=== PATIENT | female | born 1980 | race Caucasian/White ===

== ENCOUNTER 2021-05-17 09:23 | Inpatient (IN) ==
--- NOTE | 2021-04-29 11:47 | PAT Medication Instructions ---
Medication Instructions Date of Service April 29, 2021 Home Medications cholecalciferol (vitamin D3) 50 mcg (2,000 unit) capsule (Vitamin D3) 50 mcg PO BID duloxetine 60 mg capsule,delayed release 60 mg PO HS gabapentin 100 mg capsule 200 mg PO TID DO NOT take the morning of surgery cholecalciferol (vitamin D3) 50 mcg (2,000 unit) capsule (Vitamin D3) 50 mcg PO BID Take morning of surgery With a small sip of water, OTHERWISE NOTHING TO EAT OR DRINK AFTER MIDNIGHT: gabapentin 100 mg capsule 200 mg PO TID Take evening before surgery cholecalciferol (vitamin D3) 50 mcg (2,000 unit) capsule (Vitamin D3) 50 mcg PO BID duloxetine 60 mg capsule,delayed release 60 mg PO HS gabapentin 100 mg capsule 200 mg PO TID Other Notes If you have any questions please call us at [phone] or [phone] or [phone] or [phone]
--- NOTE | 2021-05-03 12:18 | Anesthesiology Consultation ---
Date of Service May 03, 2021 Assessment & Plan (1) Encounter for pre-operative examination: - check urine test am DOS. - surgeon ordered medical clearance. - COVID screening: Per assessment on 05/03/2021: Travel screen negative, no known COVID-19 positive contacts or current COVID-19 related symptoms in past 2 weeks. Patient vaccinated. Surgeon arranging preop COVID testing, scheduled 05/13/2021. Awaiting results. Pt aware that if pre-op COVID test were to return positive, per hospital policy home COVID tests are not accepted and surgery would therefore be re-scheduled. She plans to discuss a PCR test with her PCP. Chart Review Chart Review: Pending: Refer to Additional Notes / Consult section and Patient seen in Pre Admission Testing Teaching & Discussion Pre-Anesthesia Teaching/Discussion Notes: Instructed NPO after midnight before surgery, except medications with 15 cc of water. Medication instructions provided according to the PAT guidelines. History Surgery Operation Date: 05/17/21 10:20 Proposed Procedures p L5-S1 Decompression Fusion Spinal Cord Monitoring - Shailesh Baldwin DO Height/Weight Height: 5 ft 5 in Weight: 74.6 kg Allergies Allergy/AdvReac Type Severity Reaction Status Date / Time No Known Allergies Allergy Verified 04/28/21 08:18 Medications Home Medications Medication Instructions Recorded Confirmed Last Taken cholecalciferol (vitamin D3) 50 50 mcg PO BID 04/28/21 04/28/21 Unknown mcg (2,000 unit) capsule (Vitamin D3) duloxetine 60 mg capsule,delayed 60 mg PO HS 04/28/21 04/28/21 Unknown release gabapentin 100 mg capsule 200 mg PO TID 04/28/21 04/28/21 Unknown Past Medical History Medical History (Updated 05/03/21 @ 12:37 by Alma Rosa Crocker PA-C) Anxiety and depression "RELATED TO MY BACK PAIN" Cardiac murmur present in childhood with persistence into adulthood, per pt PCP follows and does not require cardio Degenerative disc disease History of COVID-19 HOME TEST DONE 03/09/21>SYMPTOMS FATIGUE/BODY ACHES *FEELING BETTER History of IBS Migraine Spinal stenosis Patient denies h/o stroke, seizures, heart attack, heart failure, DM, HTN, blood clots or blood transfusions. Exercise / Class Metabolic Activity II 4-5 Yardwork/Stairs/Walk up hill (denies CP or SOB with 1 FOS) Past Family History Family History Mother Family history of diabetes mellitus Other No family history of adverse response to anesthesia Past Surgical History Surgical History H/O breast augmentation History of bladder surgery BLADDER SLING History of colonoscopy History of cystoscopy History of endometrial ablation History of tooth extraction [place] teeth removed Past Anesthesia History No Hx of Anesthesia Complications and No Family Hx of Anesthesia Complications History of PONV No Hx of PONV and No Hx of Motion Sickness Social History Smoking Status: Former smoker tobacco type: cigarettes Do You Dip or Chew Tobacco: No Smoking End Date: 4 YEARS AGO Hx Alcohol Use: Yes Alcohol type: hard liquor alcohol intake frequency: a few times a week substance use type: does not use Review of Systems Snoring, denies witnessed apneas or sleep studies. Patient denies chest pain, shortness of breath, dyspnea on exertion, reflux, fever, chills, cough, wheezing, or palpitations. Physical Exam Vital Signs Vitals BP 112/74 P 70 TEMP 98.7 SP02 98% on RA RESP 17 Physical Full cervical extension range of motion without pain Full TMJ range of motion TMD 3.5 finger breaths Mallampati Score 2 Dentition: intact, #19 permanent bridge-cracked; denies loose teeth or implants Lungs: normal respiratory effort. Clear throughout to auscultation, no adventitious breath sounds Cardiac: regular rate and rhythm, no murmurs noted Carotid arteries: negative bruit bilat Extremities: no distal extremity edema Lab Results Anesthesia Preop Results Results Anesthesia Widget: WBC 6.23 K/uL (4.8-10.8) 05/03/21 Hgb 13.6 g/dL (12.0-16.0) 05/03/21 Hct 38.1 % (37-47) 05/03/21 Plt 331 K/uL (130-400) 05/03/21 Na 136 mmol/L (136-145) 05/03/21 K 3.7 mmol/L (3.5-5.1) 05/03/21 Cl 103 mmol/L (98-107) 05/03/21 CO2 27 mmol/L (21-32) 05/03/21 BUN 9 mg/dl (6-23) 05/03/21 Creat 0.58 mg/dl (0.6-1.2) L 05/03/21 Glucose Level 84 mg/dl (70-99(Fasting)) 05/03/21 PT 9.8 Seconds (9.0-12.0) 05/03/21 PTT 27.5 Seconds (21.0-31.0) 05/03/21 INR 1.0 (0.9-1.1) 05/03/21 Urine Color Yellow 05/03/21 Urine Appearance Clear (Clear) 05/03/21 Urine pH 5.5 (4.5-7.5) 05/03/21 Urine Specific [place] 1.015 (1.000-1.030) 05/03/21 Urine Protein Negative (Negative) 05/03/21 Urine Glucose (UA) Negative (Negative) 05/03/21 Urine Ketones Negative (Negative) 05/03/21 Urine Blood Negative (Negative) 05/03/21 Urine Nitrite Negative (Negative) 05/03/21 Urine Bilirubin Negative (Negative) 05/03/21 Urine Urobilinogen Negative (Negative) 05/03/21 Urine Leukocyte Esterase Negative (Negative) 05/03/21 Blood Type A Negative 05/03/21 Antibody Screen NEGATIVE 05/03/21 Testing Electrocardiogram Date: 05/03/21 NSR, rate [address] abnormality Chest X-Ray Date: 05/03/21 FINDINGS: The cardiac mediastinal and hilar silhouettes are within normal limits. No pneumothorax, pleural effusion, airspace consolidation or overt pulmonary edema. Bilateral breast implants. The bones of the chest appear grossly intact. IMPRESSION: No acute process.
[~2021-05-17 09:23] MED LIST: ACETAMINOPHEN 500 MG TAB PO SCH; CeleBREX 200 MG CAP PO SCH; GABAPENTIN 900 MG DOSE PO SCH; LR 15ML/HR IV SCH; ceFAZolin 1000MG 1,000 MG/7.5 ML SYR IV SCH
[2021-05-17] MEDS ORDERED: MIDAZOLAM HCL 1 MG/ML 2ML VIAL ONE (10:00)
[2021-05-17] MEDS ORDERED: fentaNYL citrate 100 MCG/2 ML VIAL ONE (10:00)
[2021-05-17] MEDS ORDERED: ONDANSETRON INJ 2 MG/ML 2 ML VIAL ONE (10:03)
[2021-05-17] MEDS ORDERED: ROCURONIUM BROMIDE 10 MG/ML 5 ML VIAL IV ONE (10:03)
[2021-05-17] MEDS ORDERED: DEXAMETHASONE SOD INJ 4 MG/ML VIAL ONE (10:03)
[2021-05-17] MEDS ORDERED: LIDOCAINE 2% 2 ML VIAL/AMP(20MG/ML) INFIL ONE (10:03)
[2021-05-17] MEDS ORDERED: PROPOFOL IV EMULSION 10 MG/ML 20 ML VIAL IV ONE (10:03)
[2021-05-17] MEDS ORDERED: ATROPINE SULFATE 0.1 MG/ML 10ML SYR IV PRN (10:20)
[2021-05-17] MEDS ORDERED: ONDANSETRON INJ 2 MG/ML 2 ML VIAL IV PRN ×2 (10:20→13:35)
[2021-05-17] MEDS ORDERED: ePHEDrine sulfate 50 MG/ML AMP IV PRN (10:20)
[2021-05-17] MEDS ORDERED: HYDROmorphone INJ 1 MG/ML SYRINGE IV PRN (10:20)
[2021-05-17] MEDS ORDERED: fentaNYL citrate 100 MCG/2 ML VIAL IV PRN (10:20)
--- NOTE | 2021-05-17 10:26 | History & Physical Bridge Note ---
Date of Service May 17, 2021 History & Physical Bridge Note I have examined the patient, reviewed the History & Physical and in the interval since the performance of the History & Physical I have noted the following changes of clinical significance: no changes noted
--- NOTE | 2021-05-17 10:27 | History & Physical Report ---
Date of Service May 17, 2021 Assessment & Plan (1) Lumbar disc herniation with radiculopathy: Plan: Lumbar decompression fusion L5-S1 History of Present Illness Chief Complaint: Back and leg pain Primary Care Provider: [place] Faustin This is a 40-year-old female presents with chronic persistent back and leg pain. Failing course of nonoperative care she is here for surgical invention. Allergies Allergy/AdvReac Type Severity Reaction Status Date / Time No Known Allergies Allergy Verified 05/17/21 09:48 Home Medications Medication Instructions Recorded Confirmed Type cholecalciferol (vitamin D3) 50 50 mcg PO BID 04/28/21 05/17/21 History mcg (2,000 unit) capsule (Vitamin D3) duloxetine 60 mg capsule,delayed 60 mg PO HS 04/28/21 05/17/21 History release gabapentin 100 mg capsule 200 mg PO TID 04/28/21 05/17/21 History Past Med/Surg History Medical History (Updated 05/17/21 @ 10:26 by Shailesh Baldwin, ) Anxiety and depression "RELATED TO MY BACK PAIN" Cardiac murmur present in childhood with persistence into adulthood, per pt PCP follows and does not require cardio Degenerative disc disease History of COVID-19 HOME TEST DONE 03/09/21>SYMPTOMS FATIGUE/BODY ACHES *FEELING BETTER History of IBS Migraine Spinal stenosis Surgical History H/O breast augmentation History of bladder surgery BLADDER SLING History of colonoscopy History of cystoscopy History of endometrial ablation History of tooth extraction [place] teeth removed Family History Mother Family history of diabetes mellitus Other No family history of adverse response to anesthesia Social History Smoking Status: Former smoker Smoking End Date: 4 YEARS AGO; Do You Dip or Chew Tobacco: No; Hx Alcohol Use: Yes Alcohol type: hard liquor Preferred Language: Albanian Leadership Development Consultant Required: No Beliefs That Will Affect Care: None Current Living Situation: Spouse Feels Safe at Home: Yes Safety Concerns: Feels Safe At This Time Assistive Devices: None Physical Exam Physical Exam: Patient is alert and oriented Heart regular rhythm Lungs clear Results & Data ([place]) Vital Signs (Past 12 Hours) Vital Signs Temp Pulse Resp BP Pulse Ox 05/17/21 09:51 37.0 C 67 16 122/78 98
[2021-05-17] MEDS ORDERED: BUPIVACAINE/EPINEPHRINE 0.25% 1:200,000 30 ML VIAL ONE (10:43)
[2021-05-17] MEDS ORDERED: ceFAZolin 330 MG/ML 1 GM VIAL ONE (10:43)
[2021-05-17] MEDS ORDERED: HYDROmorphone INJ 2 MG/ML SYR/VIAL ONE (11:04)
[2021-05-17] MEDS ORDERED: FLOSEAL HEMOSTATIC MATRIX 10ML TOP ONE (11:30)
[2021-05-17] MEDS ORDERED: NEOSTIGMINE METHYLSULFATE 1 MG/ML 10ML VIAL ONE (11:55)
[2021-05-17] MEDS ORDERED: GLYCOPYRROLATE 0.2 MG/ML VIAL ONE (11:55)
--- NOTE | 2021-05-17 12:23 | Operative Report ---
Post Operative Report Pre & Post Diagnosis Operation Date: 05/17/21 11:05 Pre-Op Diagnosis: Lumbar disc herniation with radiculopathy Post-Op Diagnosis: Lumbar disc herniation with radiculopathy I identified the patient and participated in the time-out.: Yes Procedure Operation Date: 05/17/21 11:05 Actual Procedures #1 lumbar decompression with bilateral medial facetectomies and foraminotomies L4-5 L5-S1. #2 posterior spinal fusion L5-S1. #3 placement posterior instrumentation L5-S1. #4 interbody fusion L5-S1. #5 placement of titanium cage 12 x 26 mm at L5-S1. #6 placement locally harvested morselized autograft in the posterior gutters. #7 placement of I factor combined with V toss in the interbody space and posterior lateral gutters. Surgeon Shailesh Baldwin, Nurse Ldr None Estimated Blood Loss 100 Findings Consistent with Post-Op Diagnosis Specimens None Indications This is a 40-year-old female who presents with marked decline in status with significant leg pain is here for the above-mentioned procedure. Description of Procedure Patient met with identified informed consent obtained. Patient was then taken to the operative suite underwent ablation placed in a prone position on the [place] table top [place] frame. All bony prominences well-padded eyes inspected to ensure no external pressure placed upon the. This point the lumbar spine was prepped and draped in a sterile fashion. Sharp dissection with the assistance of Bovie cautery was performed down to and exposing the lamina and transverse processes of L5 and the sacral ala bilaterally. From caudal to cephalad fashion complete laminectomy L5 partial laminectomy of L4 was performed occluding bilateral medial facetectomies and foraminotomies addressing all neural compression. Pedicle screws were then placed in L5 and S1 bilaterally with assistance of fluoroscopy and appropriate sized rosemary placed. By way of a transforaminal approach on the left complete discectomy L5-S1 was performed endplates curetted to subcortical being bone and a 12 x 26 mm titanium cage filled with I factor tapped in position. The rods then compressed locked in final position bilaterally. The transverse processes of L5 and sacral ala burred to subcortical bleeding bone. I factor combined with V toss and locally harvested morselized autograft was placed in the posterior gutters. 15 round PAIGE drain inserted. Incision was then closed with 1 Vicryl to fascia 2-0 Vicryl subcutaneously and 4 Monocryl for final skin closure. Steri-Strip sterile dressings placed. Patient waken taken to PACU stable condition. Please note spinal cord monitoring visualized at the procedure no changes noted. I attest to the content of the Intraoperative Record and any orders documented therein. Any exceptions are noted below.
--- NOTE | 2021-05-17 12:55 | Fluoroscopy Report ---
FL lumbar spine 2-3V CLINICAL HISTORY: L5-S1 DFI. Status post internal fixation COMPARISON STUDY: None FLUOROSCOPY TIME: 31 seconds. FLUOROSCOPIC IMAGES: 2 FINDINGS: AP and lateral fluoroscopic spot films demonstrate interpedicular screw and rosemary fixation at L5-S1. A disc spacer is also in place. IMPRESSION: Status post internal fixation. ACT 112: Negative or not required by law. Electronically signed by: Boone Bernstein M.D. 05/17/2021 12:54 PM
--- NOTE | 2021-05-17 13:05 | Anesthesiology Progress Note ---
Date of Service May 17, 2021 Anesthesia Post Procedure Vital Signs Vital Signs: Temp Pulse Pulse Resp BP BP Pulse Ox 05/17/21 13:00 77 18 114/68 97 05/17/21 12:50 80 18 118/73 99 05/17/21 12:40 86 18 114/73 100 05/17/21 12:31 36.1 C L 78 12 108/64 100 05/17/21 09:51 37.0 C 67 16 122/78 98 Pain Intensity Left Lower Back: Pain Intensity: 4 Transfer of Care Handoff Completed per policy Notes Mental Status: alert / awake / arousable and participated in evaluation Patient Amnestic to Procedure: Yes Nausea / Vomiting: adequately controlled Pain: adequately controlled Airway Patency, RR, SpO2: stable & adequate BP & HR: stable & adequate Hydration State: stable & adequate Anesthetic Complications: no major complications apparent and Pt Satisfied with anesthetic care
[2021-05-17] MEDS ORDERED: ALUMINUM/MAGNESIUM SUSP 30 ML UDC PO PRN (13:35)
[2021-05-17] MEDS ORDERED: SOD PHOSPHATE/SOD BIPHOSPHATE ENEMA 132 ML BTL PR PRN (13:35)
[2021-05-17] MEDS ORDERED: LORazepam 2 MG/1 ML VIAL IV PRN (13:35)
[2021-05-17] MEDS ORDERED: DO NOT ADMINISTER PNEUMOCOCCAL VACCINE PRN (13:35)
[2021-05-17] MEDS ORDERED: ONDANSETRON 4 MG OD TAB PO PRN (13:35)
[2021-05-17] MEDS ORDERED: METOCLOPRAMIDE HCL INJ 5 MG/ML 2 ML VIAL IV PRN (13:35)
[2021-05-17] MEDS ORDERED: diphenhydrAMINE Capsule 25 MG CAP PO PRN (13:35)
[2021-05-17] MEDS ORDERED: DO NOT ADMINISTER FLU VACCINE PRN (13:35)
[2021-05-17] MEDS ORDERED: NALOXONE HCL 0.4 MG/1 ML VIAL/CARP IV PRN (13:35)
[2021-05-17] MEDS ORDERED: LORazepam 0.5 MG TAB PO PRN (13:35)
[2021-05-17] MEDS ORDERED: FAMOTIDINE 20 MG TAB PO PRN (13:35)
[2021-05-17] MEDS ORDERED: ACETAMINOPHEN 1,000 MG/100 ML VIAL IV PRN (13:35)
[2021-05-17] MEDS ORDERED: bisacodyL 10 MG SUPP PR PRN (13:35)
[2021-05-17] MEDS ORDERED: hydrOXYzine HCl 25 MG TAB PO PRN (13:35)
[2021-05-17] MEDS ORDERED: PROMETHAZINE HCL 12.5 MG in SODIUM CHLORIDE 0.9% 50 ML IV PRN (13:35)
[2021-05-17] MEDS ORDERED: MAGNESIUM HYDROXIDE SUSP 30 ML UDC PO PRN (13:35)
[2021-05-17] MEDS ORDERED: traMADol HCL 50 MG TABLET PO PRN (13:35)
[2021-05-17] MEDS: HYDROmorphone INJ 0.5 MG/0.5 ML SYR IV PRN (13:59)
[2021-05-17] MEDS: LACTATED RINGER'S 1,000 ML IV SCH (13:59)
[2021-05-17] MEDS: GABAPENTIN 100 MG CAP PO SCH ×2 (15:23→21:05)
[2021-05-17] MEDS ORDERED: COUGH DROP (SUGAR FREE) LOZ 24 LOZ/1 BOX BUCCAL PRN (15:34)
[2021-05-17] MEDS: oxyCODONE HCL IR 5 MG TAB (IMMEDIATE RELEASE) PO PRN ×2 (16:36→23:24)
[2021-05-17] MEDS: KETOROLAC TROMETHAMINE 15 MG/ML VIAL IV SCH (17:38)
[2021-05-17] MEDS: ceFAZolin 2000MG 2,000 MG/15 ML SYR IV SCH (17:38)
[2021-05-17] MEDS: CHOLECALCIFEROL 1,000 UNITS 25 MCG TAB PO SCH (21:00)
[2021-05-17] MEDS: DULoxetine HCL 60 MG CAP PO SCH (21:03)
[2021-05-17] MEDS: HYDROmorphone INJ 1 MG/ML SYRINGE IV PRN (21:06)
[2021-05-17] MEDS: DOCUSATE SODIUM/SENNA 50/8.6MG TAB PO SCH (21:06)
[2021-05-18] MEDS: LACTATED RINGER'S 1,000 ML IV SCH (00:46)
[2021-05-18] MEDS: KETOROLAC TROMETHAMINE 15 MG/ML VIAL IV SCH ×3 (00:46→12:18)
[2021-05-18] MEDS: ceFAZolin 2000MG 2,000 MG/15 ML SYR IV SCH (02:12)
[2021-05-18] MEDS: HYDROmorphone INJ 1 MG/ML SYRINGE IV PRN ×3 (04:06→22:00)
[2021-05-18] MEDS: POLYETHYLENE (MIRALAX) 17 GM PACK PO SCH ×4 (05:51→22:01)
[2021-05-18] MEDS: oxyCODONE HCL IR 5 MG TAB (IMMEDIATE RELEASE) PO PRN ×2 (07:37→15:07)
[2021-05-18 08:33] LABS: Basophils # (auto) 0.02 K/uL (0-0.2); Basophils % (auto) 0.2 %; Eosinophils # (auto) 0.01 K/uL (0-0.5); Eosinophils % (auto) 0.1 %; Hematocrit (blood only) 30.6 % (37-47); Hemoglobin 10.5 g/dL (12.0-16.0); Immature Granulocytes # (auto) 0.02 K/uL (0.00-0.02); Immature Granulocytes % (auto) 0.2 %; Lymphocytes # (auto) 2.25 K/uL (1.2-3.4); Lymphocytes % (auto) 24.6 %; Mean Corpuscular Hemoglobin 30.9 pg (25-34); Mean Corpuscular Hgb Conc 34.3 g/dL (32-36); Mean Platelet Volume 8.9 fL (7.4-10.4); Monocytes # (auto) 0.69 K/uL (0.11-0.59); Monocytes % (auto) 7.6 %; Neutrophils # (auto) 6.14 K/uL (1.4-6.5); Neutrophils % (auto) 67.3 %; Platelet Count 288 K/uL (130-400); RDW Coefficient of Variation 13.2 % (11.5-14.5); RDW Standard Deviation 43.5 fL (36.4-46.3); White Blood Count 9.13 K/uL (4.8-10.8)
[2021-05-18] MEDS: CHOLECALCIFEROL 1,000 UNITS 25 MCG TAB PO SCH ×2 (08:34→20:07)
[2021-05-18] MEDS: GABAPENTIN 100 MG CAP PO SCH ×3 (08:34→20:07)
[2021-05-18] MEDS: dexAMETHasone 6 MG in SYRINGE 0 ML IV SCH (08:35)
[2021-05-18 09:04] LABS: BUN Creatinine Ratio 15.5 (10-20); Calcium 8.5 mg/dl (8.5-10.1); Est GFR (African American) 132.7 ml/min; Est GFR (Non-African American) 114.5 ml/min; Potassium 3.5 mmol/L (3.5-5.1)
[2021-05-18] MEDS: HYDROmorphone INJ 0.5 MG/0.5 ML SYR IV PRN (11:30)
--- NOTE | 2021-05-18 12:08 | Orthopedic Progress Note ---
Date of Service May 18, 2021 Assessment & Plan (1) Lumbar disc herniation with radiculopathy: Plan: This time we will continue with physical therapy monitor PAIGE output hopefully discharge home in the next few days. Admission and Anticipated Discharge Date Admission Date: May 17, 2021 Subjective Back pain controlled leg pain markedly improved Physical Exam Physical Exam: Patient appears comfortable. She has good strength testing. Results & Data ([facility]) Vital Signs (Past 12 Hours) Vital Signs Temp Pulse Resp BP Pulse Ox 05/18/21 07:01 36.6 C 71 18 113/68 97 05/18/21 02:42 36.9 C 74 16 117/69 94
[2021-05-18] MEDS: DOCUSATE SODIUM/SENNA 50/8.6MG TAB PO SCH (20:07)
[2021-05-18] MEDS: DULoxetine HCL 60 MG CAP PO SCH (20:07)
[2021-05-19] MEDS: ACETAMINOPHEN 500 MG TAB PO PRN ×2 (02:47→12:24)
[2021-05-19] MEDS: POLYETHYLENE (MIRALAX) 17 GM PACK PO SCH ×2 (05:32→12:25)
[2021-05-19] MEDS: HYDROmorphone INJ 0.5 MG/0.5 ML SYR IV PRN (05:36)
[2021-05-19] MEDS: oxyCODONE HCL IR 5 MG TAB (IMMEDIATE RELEASE) PO PRN ×2 (09:05→13:37)
[2021-05-19] MEDS: CHOLECALCIFEROL 1,000 UNITS 25 MCG TAB PO SCH (09:05)
[2021-05-19] MEDS: GABAPENTIN 100 MG CAP PO SCH ×2 (09:05→13:37)
[2021-05-19] MEDS: dexAMETHasone 6 MG in SYRINGE 0 ML IV SCH (09:06)
--- NOTE | 2021-05-19 11:03 | Orthopedic Progress Note ---
Date of Service May 19, 2021 Assessment & Plan (1) Lumbar disc herniation with radiculopathy: Plan: Patient has expressed interest in going home this afternoon. We will have the Darby discontinued and ensure that she is able to void without difficulty. If she able to do so she is okay to discharge home today. Admission and Anticipated Discharge Date Admission Date: May 17, 2021 Subjective Back pain markedly improved leg pain improved Physical Exam Physical Exam: Exam patient is comfortable. Is good strength testing. Results & Data ([facility]) Vital Signs (Past 12 Hours) Vital Signs Temp Pulse Resp BP Pulse Ox 05/19/21 07:13 36.6 C 72 16 122/72 96
--- NOTE | 2021-05-26 11:27 | Discharge Summary ---
Date of Service May 26, 2021 Admission HPI Per Admitting Provider This is a 40-year-old female presents with chronic persistent back and leg pain. Failing course of nonoperative care she is here for surgical invention. Principal Diagnosis Lumbar spinal stenosis with radiculopathy Discharge Data Allergies Allergy/AdvReac Type Severity Reaction Status Date / Time No Known Allergies Allergy Verified 05/17/21 09:48 Procedures Performed Operation Date: 05/17/21 11:05 Actual Procedures p L5-S1 Decompression Fusion, Spinal Cord Monitoring(Not Applicable) - Shailesh Baldwin DO Ordered Studies 05/17/21 11:05 [place] lumbar spine 2-3V Routine Hospital Course (1) Lumbar disc herniation with radiculopathy: Patient with lumbar decompression fusion Amy was taken to orthopedic for possibly. Postop day 1 she was up and ambulating with us to postop day #2 PAIGE drain decreasing appropriately. Pain well controlled. Sent for discharge home. Discharge instructions found in chart for further review. Total Time Total Time Spent Total Time Spent (In Minutes): 20 minutes Discharge Plan Discharge Items Patient Disposition: Home - Self-Care Reason For Visit: Spinal Stenosis, Lumbar Region with Neurogenic Discharge Diagnosis: Lumbar spinal stenosis with radiculopathy Activity: As commented below Non-emergency contact: Primary Care Provider Call non-emergency contact if: you have any medication questions Follow-up/Referrals: [place] Faustin M.D. [Primary Care Provider] - Diet: Regular Addtl Attending Provider Instructions: ACTIVITY RECOMMENDATIONS: SELF CARE INSTRUCTIONS AFTER THORACIC/LUMBAR FUSIONS 1. You may walk to your tolerance. It is good exercise for your legs and back. Expect some back and intermittent leg aches and pains. 2. You may perform "counter-top" level activities (make a sandwich, erin with a project, etc.). 3. No bending or lifting of more than 10 pounds or back twisting of any nature (roll like a log when turning in bed). 4. You may ride in a car for 20-30 minutes at a time. No driving until after your first visit with your doctor. 5. Frequent changes of position and restricting sitting to 30 minutes at a time will help limit the amount of back spasms and stiffness you may experience. 6. You may discontinue the use of ambulatory aids (cane, crutches, etc.) once your strength and confidence allow. 7. You may roll skinner the shower and let water strike your incision when you arrive home at least once daily. Do not take a tub bath, sit in a hot tub or go into a swimming pool until after your first recheck in the office. SPECIAL CARE INSTRUCTIONS: VERY IMPORTANT TO READ AND REVIEW A. Your surgical incision has been closed with a cosmetic suture under the skin that will dissolve in about 6 weeks. In 14 days, you can use a pair of clean scissors and cut the suture that is left outside of the skin at the ends of your incision. 1. The small skin tapes can be removed 7 days after surgery if they have not fallen off by that point. 2. You may keep the wound open to air as much as possible to promote healing after post-op day number 5 unless told otherwise by your doctor. 3. If you think the wound looks like it is becoming infected (redness or worsening drainage) and/or you are experiencing fever, chill or worsening back pain and muscle spasms, contact the office so that we may evaluate you as soon as possible. B. Complications are uncommon, but please contact us if you have any signs or symptoms of: 1. wound infection (fever higher than 102.5 degrees F, redness, separation of wound, drainage, or increasing pain from the incision) 2. blood clots in legs (pain, swelling, redness and warmth in legs) 3. urinary tract infection (fever higher than 102.5 degrees F, burning upon urination or increased frequency of urination) 4. nerve problems (inability to walk on your toes or heels, numbness, loss of bowel or bladder control) 5. any other symptoms that concern you C. Please call the office at if you have any concerns or questions about your operation or recovery. D. No smoking! Smoking drastically decreases the chance of a solid fusion. E. Do not take any anti-inflammatory medications (Indocin, Advil, Motrin, Aspirin, Naprosyn, etc.) as these may inhibit the chance of a solid fusion. Tylenol is okay to take for pain. MANAGING PAIN AFTER SPINAL SURGERY 1. Narcotic medication is intended for short-term use and will be provided for surgical pain. Surgical pain usually lasts for a period of 4-6 weeks. Narcotic medication includes Percocet, Vicodin, Darvocet, Tylenol #3 or Lortab. 2. Longer-term pain is more appropriately treated with non-narcotic medication such as Tylenol ES. 3. Muscle spasm is not appropriately treated with narcotics. Muscle relaxers such as Soma, Flexeril or Skelaxin can be used along with Tylenol ES. 4. Remember that we all live with some "aches and pains". This is not unusual or uncommon after an injury or as we get older. a. Back pain is expected and may include muscle spasms for 4 to 6 weeks after surgery. The pain should gradually improve. If the pain worsens for no apparent reason, please contact the office. b. Intermittent leg pain may also be experienced and should not be concerned about unless it worsens for no apparent reason. If so, please contact the office. 5. We will provide appropriate medication within the normal guidelines of their prescribed use. We will also be very cautious and aware of potential abuse and extended duration of patients' medication needs. a. Pain medications are for your comfort and to assist with sleep and rest so that the tissue can heal. They are not provided in order to return to normal activity and should not be used through the day. To do so or worsening pain at night can result from ongoing tissue damage and development of tolerance to the prescribed medicine. 6. Please allow 2-3 days to process refills. Prescriptions will not be mailed but must be picked up at the office. FOLLOW UP VISIT: Keep your scheduled follow-up appointment. Any questions, please call the office at . Pending Studies at Discharge: No Stand-Alone Forms: My [facility], Smoking Cessation Medications and DC Order Prescriptions: New tramadol 50 mg tablet 50 mg PO Q6H PRN (Reason: pain, moderate) Qty: 30 RF: 0 oxycodone 5 mg tablet 5 mg PO Q6H PRN (Reason: pain, severe) Qty: 30 RF: 0 Continued gabapentin 100 mg Capsule 200 mg PO TID RF: 0 duloxetine 60 mg Capsule,Delayed Release(Dr/Ec) 60 mg PO HS RF: 0 cholecalciferol (vitamin D3) [Vitamin D3] 50 mcg (2,000 unit) Capsule 50 mcg PO BID RF: 0 Discharge Orders: Discharge Order (Routine); Ordered 03/09/22 Ordered By: Shailesh Amaro/Other Patient Handouts: Staff Ed: Good [employer]ics, Staff Ed: Back Safety, Managing Post-Op Pain at Home Admission Data Admit Date/Time: 05/17/21 12:27 Attending Provider: Shailesh Baldwin Admit Provider: Shailesh Baldwin Primary Care Provider: [place] Faustin Other Interventions: Discharge Summary Assessment (RN) Last Done: 05/19/21 13:28
== END 2021-05-19 14:32 | disposition home or self-care (01) | DRG 455 ==
LOC: ASU 09:23 → 3N 12:27

== ENCOUNTER 2022-06-27 09:15 | Observation (INO) ==
--- NOTE | 2022-06-08 10:22 | PAT Medication Instructions ---
Medication Instructions Date of Service June 08, 2022 Home Medications Medication Instructions Recorded oxycodone 5 mg tablet 5 mg PO Q6H PRN pain, severe #30 05/17/21 tabs tramadol 50 mg tablet 50 mg PO Q6H PRN pain, moderate 05/17/21 #30 tabs cholecalciferol (vitamin D3) 50 mcg (2,000 unit) capsule (Vitamin D3) 50 mcg PO BID duloxetine 60 mg capsule,delayed release 60 mg PO HS oxycodone 5 mg tablet 5 mg PO Q6H PRN tramadol 50 mg tablet 50 mg PO Q6H PRN ascorbic acid (vitamin C) 500 mg tablet,extended release (Vitamin C ER) 500 mg PO QAM DO NOT take the morning of surgery cholecalciferol (vitamin D3) 50 mcg (2,000 unit) capsule (Vitamin D3) 50 mcg PO BID ascorbic acid (vitamin C) 500 mg tablet,extended release (Vitamin C ER) 500 mg PO QAM Take morning of surgery With a small sip of water, OTHERWISE NOTHING TO EAT OR DRINK AFTER MIDNIGHT: oxycodone 5 mg tablet 5 mg PO Q6H PRN(if needed) tramadol 50 mg tablet 50 mg PO Q6H PRN(if needed) Take evening before surgery cholecalciferol (vitamin D3) 50 mcg (2,000 unit) capsule (Vitamin D3) 50 mcg PO BID duloxetine 60 mg capsule,delayed release 60 mg PO HS oxycodone 5 mg tablet 5 mg PO Q6H PRN(if needed) tramadol 50 mg tablet 50 mg PO Q6H PRN(if needed) Other Notes If you have any questions please call us at [phone] or [phone] or [phone] or [phone]
--- NOTE | 2022-06-13 12:08 | Anesthesiology Consultation ---
Date of Service June 13, 2022 Assessment & Plan (1) Encounter for pre-operative examination: - COVID screening: Per assessment on 06/13: No known COVID-19 positive contacts or current COVID-19 related symptoms. Travel screen negative. Patient vaccinated. At surgeon discretion if preop Covid testing being done. - S/P L5-S1 Decompression/fusion (05/17/21): Grade 1 view, MAC#3, ETT 7.0 at [facility]. No issues noted per post-op anesthesia progress note. - Check test AM DOS Chart Review Chart Review: Acceptable Risk for Surgery and Patient seen in Pre Admission Testing Teaching & Discussion Pre-Anesthesia Teaching/Discussion Notes: Instructed NPO after midnight before surgery,except medications with 15 cc of water. Medication instructions provided according to the PAT guidelines. History Surgery Operation Date: 06/27/22 13:25 Proposed Procedures p L4-L5 Decompression, L4-S1 Fusion, L5-S1 Hardware Removal, Spinal Cord Monitoring - Shailesh Baldwin DO Height/Weight Height: 5 ft 6 in Weight: 74.3 kg Allergies Allergy/AdvReac Type Severity Reaction Status Date / Time No Known Allergies Allergy Verified 06/06/22 11:21 Medications Home Medications Medication Instructions Recorded Confirmed Last Taken cholecalciferol (vitamin D3) 50 50 mcg PO BID 04/28/21 06/06/22 05/16/21 19:30 mcg (2,000 unit) capsule (Vitamin D3) duloxetine 60 mg capsule,delayed 60 mg PO HS 04/28/21 06/06/22 05/16/21 19:30 release oxycodone 5 mg tablet 5 mg PO Q6H PRN pain, severe #30 05/17/21 06/06/22 Unknown tabs tramadol 50 mg tablet 50 mg PO Q6H PRN pain, moderate 05/17/21 06/06/22 Unknown #30 tabs ascorbic acid (vitamin C) 500 mg 500 mg PO QAM 06/06/22 06/06/22 Unknown tablet,extended release (Vitamin C ER) Past Medical History Medical History Anxiety and depression R/t back pain per patient Cardiac murmur Since childhood per patient No murmur noted per 04/2021 PAT preop evaluation Degenerative disc disease History of COVID-19 02/2021 (home test)- fatigue, body aches > resolved History of IBS Hx of renal calculi Migraine Hx Spinal stenosis Exercise / Class Metabolic Activity II 4-5 Yardwork/Stairs/Walk up hill Past Family History Family History Mother Family history of diabetes mellitus Other No family history of adverse response to anesthesia Past Surgical History Surgical History H/O breast augmentation History of bladder surgery BLADDER SLING History of colonoscopy History of endometrial ablation History of lumbar surgery L5-S1 Decompression/fusion (05/17/21): Grade 1 view, MAC#3, ETT 7.0 at [facility]. No issues noted per post-op anesthesia progress note. History of tooth extraction S/P cystoscopy with ureteral stent placement [place] teeth removed Past Anesthesia History No Hx of Anesthesia Complications Sister- "felt crawling on arm, like being attacked by ants" History of PONV No Hx of Motion Sickness and History of PONV (mild post-op nausea x1 episode) Social History Smoking Status: Former smoker tobacco type: cigarettes Do You Dip or Chew Tobacco: No Smoking End Date: Quit 6 years ago Hx Alcohol Use: Yes Alcohol type: hard liquor alcohol intake frequency: holidays/special occasions only Hx Substance Use: No substance use type: does not use Review of Systems Patient denies chest pain, shortness of breath, dyspnea on exertion, fever, chills, cough, wheezing, palpitations. Physical Exam Vital Signs VITALS BP 115/75 P 66 TEMP 98.4 SP02 98%RA RESP 16 PHYSICAL Full cervical extension range of motion. Full TMJ range of motion. TMD 3 finger breaths Mallampati Score 2 Dentition: intact, upper front left side root canal repair (sensitive/not capped), + bridge lower left sides/molars Lungs: clear throughout to auscultation Cardiac: regular rate and rhythm, no murmurs noted Spine: normal Carotid arteries: negative bruit Extremities: no edema Lab Results Anesthesia Preop Results Results Anesthesia Widget: WBC 5.28 K/ul (4.8-10.8) 06/13/22 Hgb 12.6 g/dl (12.0-16.0) 06/13/22 Hct 35.4 % (37.0-47.0) L 06/13/22 Plt 337 K/uL (130-400) 06/13/22 Na 137 mmol/L (136-145) 06/13/22 K 3.7 mmol/L (3.5-5.1) 06/13/22 Cl 104 mmol/L (98-107) 06/13/22 CO2 27 mmol/L (21-32) 06/13/22 BUN 10 mg/dl (6-23) 06/13/22 Creat 0.59 mg/dl (0.6-1.2) L 06/13/22 Glucose Level 78 mg/dl (70-99(Fasting)) 06/13/22 PT 10.4 Seconds (9.0-12.0) 06/13/22 PTT 26.2 Seconds (21.0-31.0) 06/13/22 INR 1.0 (0.9-1.1) 06/13/22 Urine Color Yellow 06/13/22 Urine Appearance Clear (Clear) 06/13/22 Urine pH 6.0 (4.5-7.5) 06/13/22 Urine Specific [place] 1.008 (1.000-1.030) 06/13/22 Urine Protein Negative (Negative) 06/13/22 Urine Glucose (UA) Negative (Negative) 06/13/22 Urine Ketones Negative (Negative) 06/13/22 Urine Blood Negative (Negative) 06/13/22 Urine Nitrite Negative (Negative) 06/13/22 Urine Bilirubin Negative (Negative) 06/13/22 Urine Urobilinogen Negative (Negative) 06/13/22 Urine Leukocyte Esterase Negative (Negative) 06/13/22 Blood Type A Negative 06/13/22 Antibody Screen NEGATIVE 06/13/22 Testing Electrocardiogram Date: 06/13/22 Findings: + NSR @ (71) Chest X-Ray Date: 06/13/22 FINDINGS: PA and lateral chest radiographs are compared to study dated 05/03/2021. The cardiomediastinal silhouette is unremarkable. The lungs and pleural spaces are clear. There is no pneumothorax. The bony thorax appears intact. IMPRESSION: No active disease in the chest. COVID-19 Risk Screen Screening Information COVID-19 Screen Date: 06/13/22 Exposure 21 Days Family/Household +COVID Last 21 Days: No Exposure 10 Days Any COVID Exposure Last 10 Days: No Symptoms Last 10 Days Experienced COVID Sx Last 10 Days: No + COVID 0-90 Days COVID + in Last 0-90 Days: No
[~2022-06-27 09:15] MED LIST changes: -ceFAZolin 1000MG 1,000 MG/7.5 ML SYR IV SCH; +ceFAZolin 2000MG 2,000 MG/15 ML SYR IV SCH
[2022-06-27] MEDS ORDERED: ONDANSETRON INJ 2 MG/ML 2 ML VIAL ONE (09:47)
[2022-06-27] MEDS ORDERED: LIDOCAINE 2% MPF LOCAL 5 ML VIAL ONE (09:47)
[2022-06-27] MEDS ORDERED: ROCURONIUM BROMIDE 10 MG/ML 5 ML VIAL IV ONE ×5 (09:47→11:46)
[2022-06-27] MEDS ORDERED: PROPOFOL IV EMULSION 10 MG/ML 20 ML VIAL IV ONE (09:47)
[2022-06-27] MEDS ORDERED: DEXAMETHASONE SOD INJ 4 MG/ML VIAL ONE ×2 (09:47→11:31)
--- NOTE | 2022-06-27 10:24 | History & Physical Bridge Note ---
Date of Service June 27, 2022 History & Physical Bridge Note I have examined the patient, reviewed the History & Physical and in the interval since the performance of the History & Physical I have noted the following changes of clinical significance: no changes noted
--- NOTE | 2022-06-27 10:25 | History & Physical Report ---
Date of Service June 27, 2022 Assessment & Plan (1) Lumbar disc herniation with radiculopathy: Plan: L4-L5 decompression, L4-S1 fusion, L5-S1 hardware removal History of Present Illness Chief Complaint: Back and leg pain Primary Care Provider: Indio Faustin This is a 41-year-old female who presents with worsening back and left leg pain after failing course of nonoperative care she is here for surgical invention. Allergies Allergy/AdvReac Type Severity Reaction Status Date / Time No Known Allergies Allergy Verified 06/27/22 09:35 Home Medications Medication Instructions Recorded Confirmed Type cholecalciferol (vitamin D3) 50 50 mcg PO BID 04/28/21 06/27/22 History mcg (2,000 unit) capsule (Vitamin D3) duloxetine 60 mg capsule,delayed 60 mg PO HS 04/28/21 06/27/22 History release oxycodone 5 mg tablet 5 mg PO Q6H PRN pain, severe #30 05/17/21 06/06/22 Rx tabs tramadol 50 mg tablet 50 mg PO Q6H PRN pain, moderate 05/17/21 06/06/22 Rx #30 tabs ascorbic acid (vitamin C) 500 mg 500 mg PO QAM 06/06/22 06/27/22 History tablet,extended release (Vitamin C ER) Colace 100 mg PO ONCE 06/27/22 06/27/22 History Past Med/Surg History Medical History Anxiety and depression R/t back pain per patient Cardiac murmur Since childhood per patient No murmur noted per 04/2021 PAT preop evaluation Degenerative disc disease History of COVID-19 02/2021 (home test)- fatigue, body aches > resolved History of IBS Hx of renal calculi Migraine Hx Spinal stenosis Surgical History H/O breast augmentation History of bladder surgery BLADDER SLING History of colonoscopy History of endometrial ablation History of lumbar surgery L5-S1 Decompression/fusion (05/17/21): Grade 1 view, MAC#3, ETT 7.0 at [facility]. No issues noted per post-op anesthesia progress note. 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
[2022-06-27] MEDS ORDERED: ceFAZolin 330 MG/ML 1 GM VIAL ONE (10:41)
[2022-06-27] MEDS ORDERED: BUPIVACAINE/EPINEPHRINE 0.25% 1:200,000 30 ML VIAL ONE (10:41)
[2022-06-27] MEDS ORDERED: fentaNYL citrate PF 100 MCG/2 ML VIAL ONE (10:48)
[2022-06-27] MEDS ORDERED: MIDAZOLAM HCL 1 MG/ML 2ML VIAL ONE (10:48)
[2022-06-27] MEDS ORDERED: ePHEDrine sulfate 50 MG/ML AMP IV PRN ×2 (11:04→11:05)
[2022-06-27] MEDS ORDERED: ONDANSETRON INJ 2 MG/ML 2 ML VIAL IV PRN (11:04)
[2022-06-27] MEDS ORDERED: fentaNYL citrate PF 100 MCG/2 ML VIAL IV PRN (11:04)
[2022-06-27] MEDS ORDERED: ALBUTEROL 0.083% NEBU SOLN 3 ML VIAL INH PRN (11:04)
[2022-06-27] MEDS ORDERED: ATROPINE SULFATE 0.1 MG/ML 10ML SYR IV PRN ×2 (11:04→11:05)
[2022-06-27] MEDS ORDERED: ACETAMINOPHEN 1,000 MG/100 ML VIAL IV STA (11:04)
[2022-06-27] MEDS ORDERED: HYDROmorphone INJ 1 MG/ML SYRINGE IV PRN ×2 (11:05→13:47)
[2022-06-27] MEDS ORDERED: HYDROmorphone INJ 2 MG/ML SYR/VIAL ONE (11:33)
[2022-06-27] MEDS ORDERED: ARTIFICIAL TEARS OP OINT 3.5 GM TUBE ONE (11:41)
[2022-06-27] MEDS ORDERED: ePHEDrine sulfate 50 MG/ML AMP ONE (11:50)
[2022-06-27] MEDS ORDERED: FLOSEAL HEMOSTATIC MATRIX 10ML TOP ONE (12:32)
[2022-06-27] MEDS ORDERED: GLYCOPYRROLATE 0.2 MG/ML VIAL ONE (12:39)
[2022-06-27] MEDS ORDERED: NEOSTIGMINE METHYLSULFATE 1 MG/ML 10ML VIAL ONE (12:39)
--- NOTE | 2022-06-27 12:43 | Operative Report ---
Post Operative Report Pre & Post Diagnosis Operation Date: 06/27/22 10:45 Pre-Op Diagnosis: Lumbar disc herniation with radiculopathy Post-Op Diagnosis: Same I identified the patient and participated in the time-out.: Yes Procedure Operation Date: 06/27/22 10:45 Actual Procedures #1 removal of posterior instrumentation L5-S1. #2 exploration of fusion L5-S1. #3 lumbar decompression bilateral medial facetectomies and foraminotomies with excision of herniated disc L4-L5. #4 posterior spinal fusion L4-5. #5 placement of posterior instrumentation L4-S1. #6 interbody fusion L4-5. #7 placement of Spira 14 x 26 mm cage at L4-5. #8 placement of locally harvested morselized autograft and posterior gutters. #9 placement I factor amount of the test interbody space and posterior lateral gutters. Surgeon Shailesh Baldwin, Director Of Strategic Sourcing Talia Garcia Estimated Blood Loss 150 Findings Consistent with Post-Op Diagnosis Specimens None Indications This is a 41-year-old female presents above-mentioned diagnosis after failed course of nonoperative care she is here for surgical invention. Description of Procedure Patient was met with identified informed consent obtained. Patient was then taken to the operative suite underwent a patient placed in a prone position on the [place] table top [place] frame. All bony promises well-padded eyes inspected to ensure no external pressure placed upon the. This point lumbar spine was prepped and draped in a sterile fashion. Sharp dissection with the assistance of Bovie cautery to form down to and exposing the lamina and transverse processes of L4 and instrumentation L5-S1 bilaterally. And then proceeded move the hardware bilaterally explore the fusion mass noting it to be maturing. I then performed a complete laminectomy of L4 including bilateral medial facetectomies and foraminotomies as well excision of fragment on the le ft. After complete decompression pedicle screws were placed in L4-L5 and S1 levels bilaterally with assistance of fluoroscopy and appropriate sized rosemary placed. By way of a trans foraminal approach on the left pleat discectomy of L4-L5 was performed endplates curetted to subcortical bleeding bone and a 14 x 26 mm Spira cage with I factor tapped in position. The rods were then compressed locked into final position bilaterally. The transverse processes of L4 and L5 burred to subcortically bone. I factor amount of the test and locally harvested morselized autograft was placed in the posterior gutters. 15 round PAIGE drain inserted. The incision was then closed with 1 Vicryl the fascia 2-0 Vicryl subcutaneously and 4 Monocryl for final skin closure. Steri-Strips and sterile dressings placed. Patient awakened taken to PACU stable condition. Please note spinal cord monitoring was utilized at the procedure no changes noted. Lastly Talia Garcia was present at the entire surgery and with the patient positioning complex portions of the surgery and final skin closure. I attest to the content of the Intraoperative Record and any orders documented therein. Any exceptions are noted below.
--- NOTE | 2022-06-27 13:07 | Fluoroscopy Report ---
FL lumbar spine 2-3V CLINICAL HISTORY: L4-S1 DFI L5-S1 RH COMPARISON STUDY: Lumbar spine fluoroscopic images May 17, 2021. FLUOROSCOPY TIME: 11 seconds. Cecilio r: 8.18 mGy FLUOROSCOPIC IMAGES: 2 FINDINGS: Initially, hardware removal at the L5-S1 level was performed. Subsequently L4-L5 discectomy with interbody spacer placement was performed. There are bilateral pleural screws at the L4, L5 and S1 levels with interconnecting rods. Hardware is intact. IMPRESSION: Fluoroscopy provided during hardware removal and L4-S1 posterior decompression and fusio n. ACT 112: Negative or not required by law. Electronically signed by: Alfredo Zayas M.D. 06/27/2022 1:06 PM
[2022-06-27] MEDS ORDERED: diphenhydrAMINE Capsule 25 MG CAP PO PRN (13:47)
[2022-06-27] MEDS ORDERED: ACETAMINOPHEN 500 MG TAB PO PRN (13:47)
[2022-06-27] MEDS ORDERED: hydrOXYzine HCl 25 MG TAB PO PRN (13:47)
[2022-06-27] MEDS ORDERED: SOD PHOSPHATE/SOD BIPHOSPHATE ENEMA 132 ML BTL PR PRN (13:47)
[2022-06-27] MEDS ORDERED: LORazepam 2 MG/1 ML VIAL IV PRN (13:47)
[2022-06-27] MEDS ORDERED: LORazepam 0.5 MG TAB PO PRN (13:47)
[2022-06-27] MEDS ORDERED: MAGNESIUM HYDROXIDE SUSP 30 ML UDC PO PRN (13:47)
[2022-06-27] MEDS ORDERED: bisacodyL 10 MG SUPP PR PRN (13:47)
[2022-06-27] MEDS ORDERED: FAMOTIDINE 20 MG TAB PO PRN (13:47)
[2022-06-27] MEDS ORDERED: traMADol HCL 50 MG TABLET PO PRN (13:47)
[2022-06-27] MEDS ORDERED: DO NOT ADMINISTER PNEUMOCOCCAL VACCINE PRN (13:47)
[2022-06-27] MEDS ORDERED: NALOXONE HCL 0.4 MG/1 ML VIAL/CARP IV PRN (13:47)
[2022-06-27] MEDS ORDERED: ALUMINUM/MAGNESIUM SUSP 30 ML UDC PO PRN (13:47)
[2022-06-27] MEDS ORDERED: ONDANSETRON 4 MG OD TAB PO PRN (13:47)
[2022-06-27] MEDS ORDERED: DO NOT ADMINISTER FLU VACCINE PRN (13:47)
[2022-06-27] MEDS ORDERED: ACETAMINOPHEN 1,000 MG/100 ML VIAL IV PRN (13:47)
[2022-06-27] MEDS ORDERED: PROMETHAZINE HCL 12.5 MG in SODIUM CHLORIDE 0.9% 50 ML IV PRN (13:47)
[2022-06-27] MEDS ORDERED: METOCLOPRAMIDE HCL INJ 5 MG/ML 2 ML VIAL IV PRN (13:47)
[2022-06-27] MEDS: LACTATED RINGER'S 1,000 ML IV SCH ×2 (13:55→23:08)
--- NOTE | 2022-06-27 15:20 | Anesthesiology Progress Note ---
Date of Service June 27, 2022 Anesthesia Post Procedure Vital Signs Vital Signs: Temp Pulse Pulse Resp BP Pulse Ox O2 Del Method 06/27/22 14:47 36.8 C 72 16 107/65 98 Room Air 06/27/22 14:15 36.9 C 74 14 109/65 99 Room Air 06/27/22 13:30 36.6 C 88 15 115/57 L 100 Room Air 06/27/22 13:20 79 15 121/63 100 Oxymask 06/27/22 13:10 88 15 125/87 100 Oxymask 06/27/22 13:00 36.6 C 113 H 22 124/62 100 Oxymask 06/27/22 09:39 36.7 C 77 18 134/62 100 Room Air O2 Flow Rate 06/27/22 14:47 06/27/22 14:15 06/27/22 13:30 06/27/22 13:20 3 06/27/22 13:10 5 06/27/22 13:00 7 06/27/22 09:39 Pain Intensity Bilateral Lower Back: Pain Intensity: 6 Transfer of Care Handoff Completed per policy Notes Mental Status: alert / awake / arousable Patient Amnestic to Procedure: Yes Nausea / Vomiting: adequately controlled Pain: adequately controlled Airway Patency, RR, SpO2: stable & adequate BP & HR: stable & adequate Hydration State: stable & adequate Anesthetic Complications: no major complications apparent
[2022-06-27] MEDS: oxyCODONE HCL IR 5 MG TAB (IMMEDIATE RELEASE) PO PRN ×2 (18:01→23:07)
[2022-06-27] MEDS: ceFAZolin 2000MG 2,000 MG/15 ML SYR IV SCH (18:02)
[2022-06-27] MEDS ORDERED: COUGH DROP (SUGAR FREE) LOZ 24 LOZ/1 BOX BUCCAL PRN (19:48)
[2022-06-27] MEDS: ONDANSETRON INJ 2 MG/ML 2 ML VIAL IV PRN (20:10)
[2022-06-27] MEDS: HYDROmorphone INJ 0.5 MG/0.5 ML SYR IV PRN (20:13)
[2022-06-27] MEDS: DOCUSATE SODIUM/SENNA 50/8.6MG TAB PO SCH (20:53)
[2022-06-27] MEDS: DULoxetine HCL 60 MG CAP PO SCH (20:53)
[2022-06-27] MEDS: CHOLECALCIFEROL 1,000 UNITS 25 MCG TAB PO SCH (20:53)
[2022-06-28] MEDS: ceFAZolin 2000MG 2,000 MG/15 ML SYR IV SCH (03:21)
[2022-06-28] MEDS: ONDANSETRON INJ 2 MG/ML 2 ML VIAL IV PRN (04:14)
[2022-06-28 06:13] LABS: Basophils # (auto) 0.03 K/uL (0-0.2); Basophils % (auto) 0.3 %; Eosinophils # (auto) 0.01 K/uL (0-0.50); Eosinophils % (auto) 0.1 %; Hematocrit (blood only) 31.8 % (37.0-47.0); Hemoglobin 11.2 g/dl (12.0-16.0); Immature Granulocytes # (auto) 0.03 K/uL (0.01-0.20); Immature Granulocytes % (auto) 0.3 %; Lymphocytes # (auto) 1.29 K/uL (1.2-3.4); Lymphocytes % (auto) 11.8 %; Mean Corpuscular Hgb Conc 35.2 g/dL (32.0-36.0); Mean Corpuscular Volume 88.1 fL (80.0-100.0); Mean Platelet Volume 9.1 fL (9.4-12.4); Monocytes # (auto) 0.76 K/uL (0.11-0.59); Monocytes % (auto) 6.9 %; Neutrophils # (auto) 8.83 K/uL (1.40-6.50); Neutrophils % (auto) 80.6 %; Platelet Count 322 K/uL (130-400); RDW Coefficient of Variation 12.1 % (11.5-14.5); RDW Standard Deviation 39.4 fL (36.4-46.3); Red Blood Count 3.61 M/uL (4.20-5.40); White Blood Count 10.95 K/ul (4.8-10.8)
[2022-06-28] MEDS: POLYETHYLENE (MIRALAX) 17 GM PACK PO SCH ×4 (06:15→23:58)
[2022-06-28 06:24] LABS: BUN Creatinine Ratio 20.9 (10-20); Calcium 8.5 mg/dl (8.6-10.3); Creatinine Clr Calc Pharmacy 175.2 ml/min; Est GFR (African American) 145.4 ml/min; Est GFR (Non-African American) 125.5 ml/min; Potassium 3.6 mmol/L (3.5-5.1)
[2022-06-28] MEDS: CHOLECALCIFEROL 1,000 UNITS 25 MCG TAB PO SCH ×2 (07:33→20:37)
[2022-06-28] MEDS: dexAMETHasone 6 MG in SYRINGE 0 ML IV SCH (07:34)
[2022-06-28] MEDS: oxyCODONE HCL IR 5 MG TAB (IMMEDIATE RELEASE) PO PRN ×3 (07:44→17:47)
--- NOTE | 2022-06-28 11:11 | Orthopedic Progress Note ---
Date of Service June 28, 2022 Assessment & Plan (1) Lumbar disc herniation with radiculopathy: Plan: At this time continue physical therapy monitor PAIGE output anticipate discharge home Monday or . Admission and Anticipated Discharge Date Admission Date: June 27, 2022 Subjective Back pain controlled leg symptoms improved Physical Exam Physical Exam: Patient has good strength testing. Appears comfortable. Results & Data Vital Signs (Past 12 Hours) Vital Signs Temp Pulse Resp BP Pulse Ox O2 Del Method 06/28/22 10:59 37.2 C 72 18 122/76 96 Room Air 06/28/22 07:51 36.8 C 72 16 109/65 97 Room Air 06/28/22 02:46 36.5 C 70 16 110/67 100 Room Air
[2022-06-28] MEDS: HYDROmorphone INJ 0.5 MG/0.5 ML SYR IV PRN (20:35)
[2022-06-28] MEDS: DULoxetine HCL 60 MG CAP PO SCH (20:38)
[2022-06-28] MEDS: DOCUSATE SODIUM/SENNA 50/8.6MG TAB PO SCH (20:38)
[2022-06-29] MEDS: oxyCODONE HCL IR 5 MG TAB (IMMEDIATE RELEASE) PO PRN ×3 (00:02→11:56)
[2022-06-29] MEDS: POLYETHYLENE (MIRALAX) 17 GM PACK PO SCH ×2 (06:17→11:54)
[2022-06-29] MEDS: CHOLECALCIFEROL 1,000 UNITS 25 MCG TAB PO SCH (08:27)
[2022-06-29] MEDS: dexAMETHasone 6 MG in SYRINGE 0 ML IV SCH (08:28)
--- NOTE | 2022-06-29 08:34 | Discharge Summary ---
Date of Service June 29, 2022 Admission HPI Per Admitting Provider This is a 41-year-old female who presents with worsening back and left leg pain after failing course of nonoperative care she is here for surgical invention. Admission Exam (Per Admitting) Constitutional WD/WN, vitals as above Eyes PERRL, conjunctivae normal, anicteric sclerae ENMT external ear and nose normal, oropharynx normal Neck normal visual inspection Respiratory normal respiratory effort Cardiovascular Extremities: normal capillary refill Gastrointestinal (Abdomen) Inspection/Auscultation: abdomen normal to inspection Musculoskeletal Spine: + pain with thoraco-lumbar ROM Extremities: extremities normal to inspection and strength 5/5 throughout Skin no rashes, warm and dry Neurologic normal touch/pain/proprioception and moves all extremities Psychiatric A+Ox3, euthymic affect Eye Contact: good eye contact Discharge Data Procedures Performed Operation Date: 06/27/22 10:45 Actual Procedures p L4-L5 Decompression, L4-S1 Fusion, Spinal Cord Monitoring(Not Applicable) - Shailesh Baldwin DO s L5-S1 Hardware Removal,(Not Applicable) - Shailesh Baldwin DO Hospital Course (1) Lumbar disc herniation with radiculopathy: Patient is being discharged home on postoperative day 2 status post hard removal L5-S1, TLIF L4-5, L5-S1. She had an uneventful hospital course. Lab values have been stable. Pain is improved. She is making great progress in physical therapy daily. Discharge Instructions ACTIVITY RECOMMENDATIONS: SELF CARE INSTRUCTIONS AFTER THORACIC/LUMBAR FUSIONS 1. You may walk to your tolerance. It is good exercise for your legs and back. Expect some back and intermittent leg aches and pains. 2. You may perform "counter-top" level activities (make a sandwich, erin with a project, etc.). 3. No bending or lifting of more than 10 pounds or back twisting of any nature (roll like a log when turning in bed). 4. You may ride in a car for 20-30 minutes at a time. No driving until after your first visit with your doctor. 5. Frequent changes of position and restricting sitting to 30 minutes at a time will help limit the amount of back spasms and stiffness you may experience. 6. You may discontinue the use of ambulatory aids (cane, crutches, etc.) once your strength and confidence allow. 7. You may tank inspector the shower and let water strike your incision when you arrive home at least once daily. Do not take a tub bath, sit in a hot tub or go into a swimming pool until after your first recheck in the office. SPECIAL CARE INSTRUCTIONS: VERY IMPORTANT TO READ AND REVIEW A. Your surgical incision has been closed with a cosmetic suture under the skin that will dissolve in about 6 weeks. In 14 days, you can use a pair of clean scissors and cut the suture that is left outside of the skin at the ends of your incision. 1. The small skin tapes can be removed 7 days after surgery if they have not fallen off by that point. 2. You may keep the wound open to air as much as possible to promote healing after post-op day number 5 unless told otherwise by your doctor. 3. If you think the wound looks like it is becoming infected (redness or worsening drainage) and/or you are experiencing fever, chill or worsening back pain and muscle spasms, contact the office so that we may evaluate you as soon as possible. B. Complications are uncommon, but please contact us if you have any signs or symptoms of: 1. wound infection (fever higher than 102.5 degrees F, redness, separation of wound, drainage, or increasing pain from the incision) 2. blood clots in legs (pain, swelling, redness and warmth in legs) 3. urinary tract infection (fever higher than 102.5 degrees F, burning upon urination or increased frequency of urination) 4. nerve problems (inability to walk on your toes or heels, numbness, loss of bowel or bladder control) 5. any other symptoms that concern you C. Please call the office at if you have any concerns or questions about your operation or recovery. D. No smoking! Smoking drastically decreases the chance of a solid fusion. E. Do not take any anti-inflammatory medications (Indocin, Advil, Motrin, Aspirin, Naprosyn, etc.) as these may inhibit the chance of a solid fusion. Tylenol is okay to take for pain. MANAGING PAIN AFTER SPINAL SURGERY 1. Narcotic medication is intended for short-term use and will be provided for surgical pain. Surgical pain usually lasts for a period of 4-6 weeks. Narcotic medication includes Percocet, Vicodin, Darvocet, Tylenol #3 or Lortab. 2. Longer-term pain is more appropriately treated with non-narcotic medication such as Tylenol ES. 3. Muscle spasm is not appropriately treated with narcotics. Muscle relaxers such as Soma, Flexeril or Skelaxin can be used along with Tylenol ES. 4. Remember that we all live with some "aches and pains". This is not unusual or uncommon after an injury or as we get older. a. Back pain is expected and may include muscle spasms for 4 to 6 weeks after surgery. The pain should gradually improve. If the pain worsens for no apparent reason, please contact the office. b. Intermittent leg pain may also be experienced and should not be concerned about unless it worsens for no apparent reason. If so, please contact the office. 5. We will provide appropriate medication within the normal guidelines of their prescribed use. We will also be very cautious and aware of potential abuse and extended duration of patients' medication needs. a. Pain medications are for your comfort and to assist with sleep and rest so that the tissue can heal. They are not provided in order to return to normal activity and should not be used through the day. To do so or worsening pain at night can result from ongoing tissue damage and development of tolerance to the prescribed medicine. 6. Please allow 2-3 days to process refills. Prescriptions will not be mailed but must be picked up at the office. FOLLOW UP VISIT: Keep your scheduled follow-up appointment. Any questions, please call the office at .
== END 2022-06-29 12:12 | disposition home or self-care (01) | DRG 455 ==
LOC: ASU 09:15 → INTOOBSV 12:46 → 3E 12:46